=== PATIENT | female | born 1955 | race Caucasian/White ===

== ENCOUNTER 2017-03-09 12:55 | Inpatient (IN) ==
[2017-03-09] MEDS ORDERED: TYLENOL PO PRN (13:27)
[2017-03-09] MEDS ORDERED: SOLU-MEDROL IV ONE (13:32)
[2017-03-09] MEDS ORDERED: ZANAFLEX PO PRN (13:47)
--- NOTE | 2017-03-09 14:30 | Diag Imaging Result Doc PS360 ---
EXAM: CHEST-2 VIEWS HISTORY: shortness of breath TECHNIQUE: COMPARISON: 09/02/2015 FINDINGS: There are small patchy infiltrates in both lungs. The heart is not enlarged. The lungs are well expanded. No pleural effusions. Mild scoliosis. There are multiple surgical clips near the GE junction. IMPRESSION: Small bilateral infiltrates. Electronically signed by Austen Aguilera 03/09/2017 2:28 PM
[2017-03-09 14:35] LABS: BASO% 0.1 % (0.0-0.8); HEMATOCRIT 39.9 % (37.0-47.0); IMM GRAN# 0.05 X1000 (0.0-0.04); IMM GRAN% 0.3 % (0.0-0.5); LYMPH# 1.06 X1000 (1.2-3.4); LYMPH% 6.7 % (20.5-51.1); MANUAL DIFF NEEDED? YES; MCH 29.9 PG (27-31); MCHC 32.6 g/dL (33-37); MCV 91.7 FL (81-99); MONO# 0.18 X1000 (0.11-0.59); MONO% 1.1 % (1.7-9.3); MPV 10.6 FL (7.4-10.4); NEUT% 91.8 % (42.2-75.2); PLT 327 X1000 (130-400); RBC 4.35 XMIL (4.2-5.4)
[2017-03-09] MEDS: ROCEPHIN 1 GM/NS 1 GM/50 ML IVPB IV SCH (14:38)
[2017-03-09] MEDS: LOVENOX SUBQ SCH (14:39)
[2017-03-09 14:49] LABS: AGAP 4; ALBUMIN 3.5 g/dL (3.5-5.0); ALKALINE PHOSPHATASE 139 U/L (32-104); BUN 20 mg/dL (8-22); CALCIUM 9.2 mg/dL (8.8-10.2); CHLORIDE 105 mmol/L (98-107); COSMO 271; GOT 37 U/L (10-30); GPT 41 U/L (10-36); POTASSIUM 4.2 mmol/L (3.5-5.1); SODIUM 130 mmol/L (136-145); TCO2 21 mmol/L (25-35); TOTAL BILIRUBIN 0.29 mg/dL (0.20-1.00); TOTAL PROTEIN 7.2 g/dL (6.3-8.3)
[2017-03-09] MEDS: ZITHROMAX 500 MG/NS 500 MG/250 ML IVPB IV SCH (15:14)
[2017-03-09] MEDS: DUONEB (A & A) INH SCH ×3 (15:28→23:11)
[2017-03-09 15:48] LABS: LYMPHS 8 % (21-51); MONO 2 % (1-9)
[2017-03-09] MEDS: GLUCOPHAGE PO SCH (16:24)
[2017-03-09] MEDS: NEURONTIN PO SCH ×2 (16:24→22:18)
[2017-03-09] MEDS: HUMALOG SUBQ SCH ×3 (16:25→22:26)
--- NOTE | 2017-03-09 18:01 | HISTORY AND PHYSICAL ---
PRIMARY CARE PHYSICIAN: Dr. Crescencio Garcia CHIEF COMPLAINT: Cough, congestion, for shortness of breath. HISTORY OF PRESENT ILLNESS: A 61-year-old white female with past medical history significant for anxiety, cervical spine pain, iron deficiency, diabetes, reflux disease, hypertension, hyperlipidemia, GERD, long-standing tobacco use, and osteoarthritis who presents for evaluation of the above-mentioned symptoms. Current history of present illness began last Thursday. At that time, she developed nasal drainage. The patient attributed this to either allergic or viral etiologies. She treated this supportively. On night, patient developed symptoms more consistent with pulmonary etiology. She complained of wheezing, cough, and shortness of breath. The patient was able to carry on her daily activities, but unfortunately has developed significant progression. On Thursday, she was seen in a walk-in clinic. She was encouraged to go to the hospital secondary to underlying hypoxia. She was, however, able to encourage and convince the staff to treat her supportively prior to pursuing inpatient care. The patient was treated with a Rocephin and steroid injection followed by a Z-Brett, ProAir HFA, and prednisone. The patient states she has achieved a modest improvement, but continues to have considerable symptoms. The patient presents today with persistent cough, congestion, shortness of breath, wheezing, and chills. She denies fevers. Her cough is largely nonproductive. She denies significant sick contacts to her knowledge. Upon arrival in the office today, her O2 saturation was 85% after ambulating. With resting, she improves to 90%. Because of an outpatient failure of therapy and persistent/progressive symptoms, patient will be admitted to the hospital for full evaluation and management. PAST MEDICAL HISTORY: 1. Abnormal EKG with poor R-wave progression. 2. History of acute pancreatitis in 1984. 3. History of left adhesive capsulitis. 4. Anxiety/depression. 5. Abnormal skin examination with multiple brown nevi. 6. Cervical spine pain status post surgical intervention in 2014. 7. Cholelithiasis, status post open cholecystectomy in 1978. 8. Chronic pain. 9. Iron deficiency. 10. Diabetes. 11. Reflux disease. 12. Hypertension. 13. Hyperlipidemia. 14. Long-standing history of neuropathy. 15. Long-standing history of tobacco. 16. Obesity. 17. Osteoarthritis. 18. History of vaginal wall prolapse status post total vaginal hysterectomy in 1997. 19. Vitamin B12 deficiency. CURRENT MEDICATIONS: 1. Aspirin 81 mg at bedtime. 2. Amlodipine 5 mg daily. 3. Ativan 1 mg at bedtime. 4. B-complex vitamin daily. 5. Iron sulfate 325 mg daily. 6. Gabapentin 800 mg 4 times daily. 7. Glyburide 5 mg 2 tablets twice daily. 8. Ibuprofen 600 mg twice daily as needed. 9. Lipitor 20 mg at bedtime. 10. Losartan 100 mg daily. 11. Metformin 1000 mg twice daily. 12. [place] as needed. 13. Omeprazole 40 mg twice daily. 14. Prilosec. 15. ProAir HFA as needed. 16. Tizanidine 4 mg 3 times daily as needed. 17. Tylenol 650 mg 2 tablets twice daily. 18. Vitamin B12 2500 mcg sublingual daily. 19. Vitamin C 500 mg twice daily. 20. Vitamin D3 1000 mg daily. 21. Zoloft 100 mg 1-1/2 tablets daily. ALLERGIES: Patient states she is allergic to tramadol. SOCIAL HISTORY: Patient smoked 1 pack per day for 24 years. She stopped in 2004. She resumed using a vapor cigarette in 2013, but quit in late 2015. Patient denies alcohol or illicit drug use. She works as a school cook and a nurse. She enjoys hiking, biking, and horseback riding. FAMILY HISTORY: Patient's father passed at age 67 secondary to complications of diabetes. He had a history of rheumatoid arthritis. Patient's mother is age 80 and has a history of diabetes and hypertension. REVIEW OF SYSTEMS: A 12 point review of systems was performed. Pertinent positives and negatives are noted in history present illness. PHYSICAL EXAMINATION: VITAL SIGNS: Temperature 98.8 degrees, heart rate 102, respirations 20, blood pressure 135/76. Initial saturation 85%. Saturation 90% with rest. GENERAL: Well nourished, well developed, no acute distress. HEENT: Normocephalic, atraumatic. Pupils equal, round, reactive to light. Extraocular muscles intact. Sclerae anicteric. [place] conjunctivae. Oral and nasopharynx clear without exudate. NECK: Supple. No lymphadenopathy. No thyromegaly. No bruits auscultated. CARDIOVASCULAR: Regular rate and rhythm. No significant murmurs, rubs, or gallops. PULMONARY: Pulmonary diffuse wheezing bilaterally. Crackles at bilateral bases. Compromised air movement. ABDOMEN: Soft, nontender, nondistended. Positive bowel sounds. EXTREMITIES: Moves all extremities well. No significant clubbing, cyanosis, or edema. NEUROLOGIC: Cranial nerves 2 through 12 grossly intact. Motor and sensory grossly intact. PSYCHOLOGIC: Examination is appropriate. LABORATORY DATA: White blood cell count 15.85. Hemoglobin 13.0, hematocrit 39.9, platelet count 327,000. Sodium 130, potassium 4.2, chloride 105, bicarbonate 21, BUN 20, creatinine 0.8, glucose 232, calcium 9.2, total bilirubin 0.29, total protein 7.2, albumin 3.5, alkaline phosphatase 139, AST 37, ALT 41. Chest x-ray reveals small bilateral infiltrates. ASSESSMENT AND PLAN: A 61-year-old white female with a complicated past medical history as noted presents for evaluation of cough, congestion, shortness of breath, and wheezing. Patient attempted treatment as an outpatient with antibiotics, steroids, and bronchodilators, although this proved ineffective. Upon arrival to my office, patient was hypoxic. Patient will be admitted to the hospital for full evaluation and management of each of those conditions above. 1. Admit to General Medicine. 2. Community acquired pneumonia-on x-ray, patient does have bilateral infiltrates. On examination, patient has diffuse crackles bilaterally with compromised air movement. Patient will be started on broad-spectrum antibiotics in the form of Rocephin and azithromycin therapy. We will check a sputum culture and blood culture. We will treat patient's bronchospasm as below. We will encourage incentive spirometry. We will follow patient's clinical course closely. 3. Diffuse bronchospasm-I am concerned this likely represents an underlying exacerbation of chronic obstructive pulmonary disease. Thus far, she has not been interested in pulmonary function testing as an outpatient at her pulmonary baseline. For now, we will treat as such. We will start patient on bronchodilators every 4 hours. We will initiate IV steroid intervention as she failed oral steroids. We will follow this closely as well. 4. Hypoxia-this likely is secondary to a combination of pneumonia and bronchospasm. We will treat patient with oxygen per protocol. We will aggressively manage pneumonia and bronchospasm as noted. We will follow her clinical course closely. 5. Diabetes-we will continue home medications. We will add sliding scale insulin. This too will be followed closely. 6. Reflux disease-we will continue patient on home dose Prilosec. 7. Hypertension-we will continue home medications. We will follow this while hospitalized. 8. Hyperlipidemia-we will continue patient on atorvastatin therapy. 9. Fluid electrolytes nutrition. 10. Neuropathy-patient has longstanding disease. We will continue gabapentin therapy. 11. Fluid electrolytes nutrition. We will monitor electrolytes. Saline lock IV, diabetic diet. Prophylaxis, patient will be placed on subcu Lovenox. cc: Crescencio Garcia MD
[2017-03-09] MEDS: ASPIRIN PO SCH (22:17)
[2017-03-09] MEDS: LIPITOR PO SCH (22:17)
[2017-03-09] MEDS: SOLU-MEDROL IV SCH (22:17)
[2017-03-09] MEDS: COZAAR PO SCH (22:17)
[2017-03-09] MEDS: TYLENOL ARTHRITIS PO SCH (22:18)
[2017-03-09] MEDS: PRILOSEC PO SCH (22:18)
[2017-03-09] MEDS: DIABETA PO SCH (22:18)
[2017-03-09] MEDS: ATIVAN PO SCH (22:18)
[2017-03-10] MEDS: DUONEB (A & A) INH SCH ×6 (03:13→22:55)
[2017-03-10] MEDS: SOLU-MEDROL IV SCH ×2 (06:31→13:35)
[2017-03-10] MEDS: HUMALOG SUBQ SCH ×4 (06:31→20:06)
[2017-03-10] MEDS: PRILOSEC PO SCH ×2 (08:01→20:01)
[2017-03-10] MEDS: ZANAFLEX PO SCH ×4 (08:01→20:01)
[2017-03-10] MEDS: GLUCOPHAGE PO SCH ×2 (08:01→16:22)
[2017-03-10] MEDS: FERROUS SULFATE PO SCH (08:01)
[2017-03-10] MEDS: TYLENOL ARTHRITIS PO SCH ×2 (08:01→20:01)
[2017-03-10] MEDS: VITAMIN C PO SCH (08:01)
[2017-03-10] MEDS: NEURONTIN PO SCH ×4 (08:01→20:00)
[2017-03-10] MEDS: NORVASC PO SCH (08:01)
[2017-03-10] MEDS: VITAMIN D PO SCH (08:01)
[2017-03-10] MEDS: ZOLOFT PO SCH (08:01)
[2017-03-10] MEDS: VITAMIN B-12 PO SCH (08:02)
[2017-03-10] MEDS: DIABETA PO SCH ×2 (08:02→20:01)
[2017-03-10] MEDS ORDERED: VITAMIN B-12 SL SCH (09:00)
[2017-03-10] MEDS: LOVENOX SUBQ SCH (13:33)
[2017-03-10] MEDS: ROCEPHIN 1 GM/NS 1 GM/50 ML IVPB IV SCH (13:33)
[2017-03-10] MEDS: ZITHROMAX 500 MG/NS 500 MG/250 ML IVPB IV SCH (14:20)
--- NOTE | 2017-03-10 19:11 | PROGRESS NOTE ---
DATE: 03/10/2017 SUBJECTIVE: Patient was admitted yesterday with community-acquired pneumonia and associated bronchospasm. Patient was placed on broad-spectrum antibiotics in the form of Rocephin and azithromycin. Her diffuse bronchospasm was treated with IV steroids and bronchodilators. Since admission, patient has made very slow improvement. She notes a mild decrease in shortness of breath, cough, and wheezing since yesterday. She denies fevers, chills, nausea, and vomiting. She continues to require oxygen supplementation to maintain adequate saturations. Her blood sugars have been elevated associated with steroid use. OBJECTIVE: Vital signs: Temperature maximum 98.3, heart rate 78 to 100, respirations 17 to 24, blood pressure 103 to 147/64 to 89. General: Well nourished, well developed, in no acute distress. Cardiovascular: Regular rate and rhythm. No significant murmurs, rubs, or gallops. Pulmonary: Diffuse bronchospasm, improving with improved air movement. Abdomen: Soft, nontender, nondistended. Positive bowel sounds. Extremities: Moves all extremities well. No significant clubbing, cyanosis, or edema. Dermatologic: Evaluation reveals no evidence of rash. LABORATORY DATA: None. ASSESSMENT AND PLAN: 1. Community-acquired pneumonia-patient's sputum culture is pending. We will continue Rocephin and azithromycin therapy. We will encourage incentive spirometry. We will treat patient's bronchospasm as below. 2. Diffuse bronchospasm-patient has achieved a slight improvement with aggressive interventions and we will continue her current dose of IV steroids. We will continue DuoNeb. We will follow her clinical course closely. 3. Hypoxia-we will continue oxygen per protocol. Oxygen saturations at present time are acceptable. 4. Diabetes-patient's blood sugars remained elevated. We will increase sliding scale insulin to the moderate level. We will follow this. 5. Reflux disease-we will continue Prilosec therapy. Symptoms are controlled. 6. Hypertension-patient's blood pressure is labile. We will continue her home medications. 7. Hyperlipidemia-we will continue patient on atorvastatin therapy. 8. Neuropathy-we will continue gabapentin. Symptoms are stable. 9. Disposition-at this point, patient continues to require longterm care in a hospital setting. We will plan discharge home once appropriate. cc: Crescencio Garcia MD
[2017-03-10] MEDS: ATIVAN PO SCH (20:00)
[2017-03-10] MEDS: COZAAR PO SCH (20:01)
[2017-03-10] MEDS: LIPITOR PO SCH (20:01)
[2017-03-10] MEDS: ASPIRIN PO SCH (20:01)
[2017-03-11] MEDS: SOLU-MEDROL IV SCH ×4 (00:43→22:38)
[2017-03-11] MEDS: DUONEB (A & A) INH SCH ×6 (03:05→23:01)
[2017-03-11] MEDS: HUMALOG SUBQ SCH ×4 (06:14→22:39)
[2017-03-11] MEDS: TYLENOL ARTHRITIS PO SCH ×3 (07:57→20:27)
[2017-03-11] MEDS: VITAMIN B-12 PO SCH ×2 (07:57→08:02)
[2017-03-11] MEDS: NORVASC PO SCH ×2 (07:58→08:02)
[2017-03-11] MEDS: ZOLOFT PO SCH ×2 (07:58→08:02)
[2017-03-11] MEDS: NEURONTIN PO SCH ×5 (07:58→20:26)
[2017-03-11] MEDS: ZANAFLEX PO SCH ×5 (07:58→20:27)
[2017-03-11] MEDS: DIABETA PO SCH ×3 (07:58→20:26)
[2017-03-11] MEDS: GLUCOPHAGE PO SCH ×2 (07:58→16:49)
[2017-03-11] MEDS: VITAMIN D PO SCH ×2 (07:58→08:02)
[2017-03-11] MEDS: FERROUS SULFATE PO SCH ×2 (07:58→08:01)
[2017-03-11] MEDS: PRILOSEC PO SCH ×3 (07:58→20:27)
[2017-03-11] MEDS: VITAMIN C PO SCH ×2 (07:58→08:02)
[2017-03-11] MEDS: ROCEPHIN 1 GM/NS 1 GM/50 ML IVPB IV SCH (13:49)
[2017-03-11] MEDS: LOVENOX SUBQ SCH (13:49)
[2017-03-11] MEDS: ZITHROMAX 500 MG/NS 500 MG/250 ML IVPB IV SCH (14:25)
[2017-03-11] MEDS: DIFLUCAN PO SCH (14:29)
--- NOTE | 2017-03-11 14:46 | PROGRESS NOTE ---
DATE: 03/11/2017 SUBJECTIVE: Overall, patient's condition continues to very slowly improve. She is currently being treated with IV antibiotics, IV steroids and bronchodilators. This morning, she notes a mild decrease in her wheezing and shortness of breath. She continues to require oxygen supplementation to maintain adequate oxygen saturations. She denies fevers, chills, nausea, vomiting or chest discomfort. OBJECTIVE: Vital Signs: T-max 98.7, heart rate 83-103, respirations 16-23, blood pressure 103 to 153 over 68 to 89. General: Well nourished, well developed, in no acute distress. Cardiovascular: Regular rate and rhythm. No significant murmurs, rubs, or gallops. Pulmonary: Wheezing bilaterally, improving. Adequate air movement. Abdomen: Soft, nontender, nondistended. Positive bowel sounds. Extremities: Moves all extremities well. No significant clubbing, cyanosis, or edema. Dermatologic: Evaluation reveals no evidence of rash. LABORATORY DATA: None. ASSESSMENT AND PLAN: 1. Community-acquired pneumonia--patient's sputum culture thus far has revealed 1+ normal abbey and 1+ yeast. We will continue patient on azithromycin and Rocephin therapy. We will add Diflucan. We will encourage incentive spirometry. We will treat bronchospasm as below. 2. Diffuse bronchospasm--I suspect this is secondary to underlying chronic obstructive pulmonary disease. The underlying diagnosis of chronic obstructive pulmonary disease has not been confirmed as patient has not been interested in pulmonary function testing. For now, we will continue intravenous steroids and DuoNeb. We will recheck patient this afternoon to determine if decreasing intravenous steroids is appropriate. 3. Hypoxia--we will continue patient on oxygen per protocol. We will encourage incentive spirometry. 4. Diabetes--patient's blood sugars remain elevated with steroid use. I suspect with decreasing steroids we will see improvement. For now, we will continue sliding scale insulin. 5. Reflux disease--we will continue patient on Prilosec therapy. Symptoms are controlled. 6. Hypertension--patient's blood pressure continues to have considerable lability. We will continue her home medications. 7. Hyperlipidemia--we will continue atorvastatin therapy. 8. Neuropathy--we will continue patient on gabapentin. 9. Disposition--at this point, patient continues to require detention care in a hospital setting. We will plan discharge home once appropriate. cc: Crescencio Garcia MD
[2017-03-11] MEDS: MYCOSTATIN SUSP PO SCH ×2 (16:49→20:27)
[2017-03-11] MEDS: ASPIRIN PO SCH (20:26)
[2017-03-11] MEDS: MUCINEX DM PO SCH (20:26)
[2017-03-11] MEDS: LIPITOR PO SCH (20:27)
[2017-03-11] MEDS: COZAAR PO SCH (20:27)
[2017-03-11] MEDS: ATIVAN PO SCH (22:38)
[2017-03-12] MEDS: DUONEB (A & A) INH SCH ×6 (03:45→23:05)
[2017-03-12] MEDS: HUMALOG SUBQ SCH ×4 (06:31→21:50)
[2017-03-12] MEDS: SOLU-MEDROL IV SCH ×3 (06:31→21:50)
--- NOTE | 2017-03-12 07:48 | Diag Imaging Result Doc PS360 ---
EXAM: CHEST-2 VIEWS HISTORY: hypoxia TECHNIQUE: Two views COMPARISON: 03/09/2017 FINDINGS: The lungs are well expanded. The heart is not enlarged. The vessels are not distended. There are mild increased interstitial markings similar to the prior exam. No pleural effusions. Mild scoliosis. IMPRESSION: No definite change with mild increased interstitial markings in both lungs. Electronically signed by Austen Aguilera 03/12/2017 7:46 AM
[2017-03-12] MEDS: DIABETA PO SCH ×2 (08:40→21:46)
[2017-03-12] MEDS: VITAMIN B-12 PO SCH (08:40)
[2017-03-12] MEDS: FERROUS SULFATE PO SCH (08:40)
[2017-03-12] MEDS: NEURONTIN PO SCH ×4 (08:40→21:46)
[2017-03-12] MEDS: VITAMIN D PO SCH (08:40)
[2017-03-12] MEDS: MYCOSTATIN SUSP PO SCH ×4 (08:40→21:52)
[2017-03-12] MEDS: ZOLOFT PO SCH (08:41)
[2017-03-12] MEDS: VITAMIN C PO SCH (08:41)
[2017-03-12] MEDS: PRILOSEC PO SCH ×2 (08:41→21:46)
[2017-03-12] MEDS: GLUCOPHAGE PO SCH ×2 (08:41→16:56)
[2017-03-12] MEDS: ZANAFLEX PO SCH ×3 (08:41→16:56)
[2017-03-12] MEDS: NORVASC PO SCH (08:41)
[2017-03-12] MEDS: DIFLUCAN PO SCH (08:41)
[2017-03-12] MEDS: MUCINEX DM PO SCH ×2 (08:42→21:46)
[2017-03-12] MEDS: TYLENOL ARTHRITIS PO SCH ×2 (08:52→21:46)
[2017-03-12] MEDS: LOVENOX SUBQ SCH (13:16)
[2017-03-12] MEDS: ROCEPHIN 1 GM/NS 1 GM/50 ML IVPB IV SCH (13:17)
[2017-03-12] MEDS: ZITHROMAX 500 MG/NS 500 MG/250 ML IVPB IV SCH (14:11)
[2017-03-12] MEDS: ATIVAN PO SCH (21:46)
[2017-03-12] MEDS: COZAAR PO SCH (21:46)
[2017-03-12] MEDS: ASPIRIN PO SCH (21:46)
[2017-03-12] MEDS: LIPITOR PO SCH (21:46)
[2017-03-13] MEDS: DUONEB (A & A) INH SCH ×6 (03:40→22:53)
--- NOTE | 2017-03-13 05:16 | PROGRESS NOTE ---
DATE: 03/12/2017 SUBJECTIVE: Overall, the patient continues to very slowly improve. The patient states she rested reasonably well overnight. She continues to require oxygen supplementation to maintain adequate saturations. She continues to have cough and wheezing, although this is improving. She denies fevers, chills, nausea, vomiting, shortness of breath, or chest discomfort. Her blood sugars remained elevated associated with steroid use. OBJECTIVE: Vital Signs: T-max 98.3 degrees, heart rate 92-106, respirations 16-20, blood pressure 117-137 over 72/73. General: Well nourished, well developed in no acute distress. Cardiovascular: Regular rate and rhythm. No significant murmurs, rubs, or gallops. Pulmonary: Scattered wheezes improving air movement. Abdomen: Soft, nontender, and nondistended. Positive bowel sounds. Extremities: Moves all extremities well. No significant clubbing, cyanosis, or edema. Dermatologic: Evaluation reveals no evidence of rash. LABORATORY DATA: None. ASSESSMENT AND PLAN: 1. Community-acquired pneumonia-patient's chest x-ray demonstrates no significant change. We will continue patient on broad-spectrum antibiotics. As noted yesterday, yeast grew from her sputum culture. Diflucan was added. We will continue treatment of her underlying bronchospasm as described below. 2. Diffuse bronchospasm-patient is achieving improved air movement. We will decrease Solu-Medrol to 40 mg q.8 hours. We will continue albuterol and Atrovent nebulizer treatment. We will encourage incentive spirometry. We will follow this. 3. Hypoxia - We will continue patient on oxygen per protocol. 4. Diabetes as above, patient's blood sugars are elevated. We will continue sliding scale insulin. 5. Reflux disease-we will continue the patient on Prilosec therapy. 6. Hypertension-patient's blood pressure continues to have physical debility. We will continue her home medications. 7. Hyperlipidemia - We will continue patient on atorvastatin therapy. 8. Neuropathy-We will continue gabapentin. 9. Disposition-at this point, the patient continues to require correction care in the hospital setting. We will plan discharge home once appropriate. cc: Crescencio Garcia MD
[2017-03-13] MEDS: SOLU-MEDROL IV SCH ×2 (06:54→17:48)
[2017-03-13] MEDS: HUMALOG SUBQ SCH ×4 (06:54→20:57)
[2017-03-13] MEDS: GLUCOPHAGE PO SCH ×2 (08:09→17:46)
[2017-03-13] MEDS: MUCINEX DM PO SCH ×2 (08:09→20:57)
[2017-03-13] MEDS: ZOLOFT PO SCH (08:10)
[2017-03-13] MEDS: ZANAFLEX PO SCH ×3 (08:10→17:47)
[2017-03-13] MEDS: FERROUS SULFATE PO SCH (08:10)
[2017-03-13] MEDS: VITAMIN B-12 PO SCH (08:10)
[2017-03-13] MEDS: VITAMIN C PO SCH (08:10)
[2017-03-13] MEDS: NORVASC PO SCH (08:11)
[2017-03-13] MEDS: DIFLUCAN PO SCH (08:11)
[2017-03-13] MEDS: NEURONTIN PO SCH ×4 (08:11→20:56)
[2017-03-13] MEDS: PRILOSEC PO SCH ×2 (08:11→20:56)
[2017-03-13] MEDS: VITAMIN D PO SCH (08:12)
[2017-03-13] MEDS: DIABETA PO SCH ×2 (08:12→20:57)
[2017-03-13] MEDS: TYLENOL ARTHRITIS PO SCH ×2 (09:44→20:55)
[2017-03-13] MEDS: MYCOSTATIN SUSP PO SCH ×4 (09:46→21:05)
[2017-03-13] MEDS: ROCEPHIN 1 GM/NS 1 GM/50 ML IVPB IV SCH (14:21)
[2017-03-13] MEDS: LOVENOX SUBQ SCH (14:43)
[2017-03-13] MEDS: ZITHROMAX 500 MG/NS 500 MG/250 ML IVPB IV SCH (16:46)
--- NOTE | 2017-03-13 18:34 | PROGRESS NOTE ---
DATE: 03/13/2017 SUBJECTIVE: Overall, patient continues to very slowly improve. Yesterday, we decreased Solu- Medrol to 40 mg q.8 hours. She continues to have some wheezing, although this continues to slowly improve. She continues to tolerate IV antibiotics and bronchodilators. She denies fevers, chills, nausea, and vomiting. Blood sugars remain elevated, however, improving, with steroid use. OBJECTIVE: Vital Signs: T-max 98.1, heart rate 87-101, respirations 16-18, blood pressure 117 to 147 over 72 to 76. General: Well nourished, well developed, in no acute distress. Cardiovascular: Regular rate and rhythm. No significant murmurs, rubs, or gallops. Pulmonary: Occasional wheeze, improving air movement. Abdomen: Soft, nontender, nondistended. Positive bowel sounds. Extremities: Moves all extremities well. No significant clubbing, cyanosis, or edema. Dermatologic: Evaluation reveals no evidence of rash. LABORATORY DATA: None. ASSESSMENT AND PLAN: 1. Community acquired pneumonia-the patient continues to improve clinically. We will continue broad-spectrum antibiotics. We will follow her clinical course closely. 2. Diffuse bronchospasm-patient has achieved improvement while hospitalized. We will decrease Solu-Medrol to 40 mg q.12 hours. We will continue albuterol and Atrovent. We will encourage incentive spirometry. 3. Hypoxia-patient continues to require oxygen per protocol. We will remain aware. 4. Diabetes-patient's blood sugars are elevated, but improving with decreasing steroid use. We will continue sliding scale insulin. 5. Reflux disease-we will continue patient on Prilosec therapy. 6. Hypertension-patient's blood pressure is reasonably controlled on her current regimen. 7. Hyperlipidemia - We will continue patient on atorvastatin therapy. 8. Neuropathy-the patient's symptoms are reasonably controlled with gabapentin. Disposition-At this point, the patient continues to require alf care in a hospital setting. We will plan discharge home once appropriate. cc: Crescencio Garcia MD
[2017-03-13] MEDS: ASPIRIN PO SCH (20:55)
[2017-03-13] MEDS: COZAAR PO SCH (20:55)
[2017-03-13] MEDS: ATIVAN PO SCH (20:56)
[2017-03-13] MEDS: LIPITOR PO SCH (20:56)
[2017-03-14] MEDS: DUONEB (A & A) INH SCH ×5 (03:20→19:41)
[2017-03-14] MEDS: SOLU-MEDROL IV SCH ×2 (06:23→17:16)
[2017-03-14] MEDS: HUMALOG SUBQ SCH ×4 (06:24→21:04)
[2017-03-14] MEDS: MUCINEX DM PO SCH ×2 (11:35→20:52)
[2017-03-14] MEDS: NORVASC PO SCH (11:35)
[2017-03-14] MEDS: ZOLOFT PO SCH (11:35)
[2017-03-14] MEDS: PRILOSEC PO SCH ×2 (11:35→20:52)
[2017-03-14] MEDS: TYLENOL ARTHRITIS PO SCH ×2 (11:35→20:53)
[2017-03-14] MEDS: NEURONTIN PO SCH ×4 (11:36→20:53)
[2017-03-14] MEDS: DIFLUCAN PO SCH (11:36)
[2017-03-14] MEDS: DIABETA PO SCH ×2 (11:36→20:53)
[2017-03-14] MEDS: ZANAFLEX PO SCH ×3 (11:36→19:28)
[2017-03-14] MEDS: GLUCOPHAGE PO SCH ×2 (11:36→17:15)
[2017-03-14] MEDS: VITAMIN B-12 PO SCH (11:36)
[2017-03-14] MEDS: VITAMIN D PO SCH (11:36)
[2017-03-14] MEDS: FERROUS SULFATE PO SCH (11:37)
[2017-03-14] MEDS: VITAMIN C PO SCH (11:37)
[2017-03-14] MEDS: MYCOSTATIN SUSP PO SCH ×4 (11:38→20:52)
--- NOTE | 2017-03-14 14:03 | PROGRESS NOTE ---
DATE: 03/14/2017 SUBJECTIVE: The patient continues to very slowly improve. Yesterday, we decreased her Solu- Medrol to 40 mg q.12 hours. The patient has achieved some improvement but continues to have some wheezing. She is being treated with IV antibiotics, bronchodilators, and IV steroids. She continues to require oxygen supplementation to maintain adequate oxygen saturations. She denies fevers, chills, nausea, vomiting, or chest discomfort. OBJECTIVE: T-Max 98.8, heart rate 69-105, respirations 16-18, blood pressure 133 to 149 over 69 to 80. General: Well nourished, well developed, in no acute distress. Cardiovascular: Regular rate and rhythm. No significant murmurs, rubs, or gallops. Pulmonary: Diffuse wheezing, largely unchanged from yesterday. Adequate air movement. Abdomen is soft, nontender, nondistended. Positive bowel sounds. Extremities: Moves all extremities well. No significant clubbing, cyanosis, or edema. Dermatologic evaluation reveals no evidence of rash. LABORATORY DATA: None. ASSESSMENT AND PLAN: 1. Community acquired pneumonia - Patient continues to improve clinically, although slowly. For now, we will continue her broad-spectrum antibiotics and encourage incentive spirometry. We will continue to treat her bronchospasm as below. 2. Diffuse bronchospasm - I suspect this represents an underlying acute exacerbation of chronic obstructive pulmonary disease. I cannot define this as she has not had pulmonary function testing today. We will continue Solu-Medrol 40 mg q.12 hours and albuterol/Atrovent nebulizer treatments. Should she continue to improve, we will consider transitioning to oral steroids tomorrow. 3. Hypoxia - We will continue oxygen per protocol. We will work towards weaning prior to discharge. If unable, we will plan oxygen at home. 4. Diabetes - The patient's blood sugars are reasonably controlled with sliding scale insulin. 5. Reflux disease - We will continue Prilosec therapy. We will encourage aspiration precautions. 6. Hypertension - The patient's blood pressure is reasonably controlled on her current regimen. 7. Hyperlipidemia - We will continue atorvastatin therapy. 8. Neuropathy - We will continue gabapentin therapy. DISPOSITION: At this point, the patient continues to require custodial care in a hospital setting. We will plan discharge home once appropriate. cc: Crescencio Garcia MD
[2017-03-14] MEDS: LOVENOX SUBQ SCH (16:15)
[2017-03-14] MEDS: ROCEPHIN 1 GM/NS 1 GM/50 ML IVPB IV SCH (16:15)
[2017-03-14] MEDS: ZITHROMAX 500 MG/NS 500 MG/250 ML IVPB IV SCH (17:49)
[2017-03-14] MEDS: LIPITOR PO SCH (20:52)
[2017-03-14] MEDS: COZAAR PO SCH (20:53)
[2017-03-14] MEDS: ATIVAN PO SCH (20:53)
[2017-03-14] MEDS: ASPIRIN PO SCH (20:53)
[2017-03-15] MEDS: DUONEB (A & A) INH SCH ×7 (00:45→22:45)
[2017-03-15] MEDS: HUMALOG SUBQ SCH ×3 (06:29→16:28)
[2017-03-15] MEDS: SOLU-MEDROL IV SCH (06:29)
[2017-03-15] MEDS: PRILOSEC PO SCH (08:45)
[2017-03-15] MEDS: TYLENOL ARTHRITIS PO SCH (08:46)
[2017-03-15] MEDS: ZOLOFT PO SCH (08:46)
[2017-03-15] MEDS: VITAMIN D PO SCH (08:46)
[2017-03-15] MEDS: NEURONTIN PO SCH ×3 (08:46→16:26)
[2017-03-15] MEDS: GLUCOPHAGE PO SCH ×2 (08:46→16:26)
[2017-03-15] MEDS: VITAMIN B-12 PO SCH (08:46)
[2017-03-15] MEDS: DIABETA PO SCH (08:46)
[2017-03-15] MEDS: MYCOSTATIN SUSP PO SCH ×3 (08:47→16:29)
[2017-03-15] MEDS: ZANAFLEX PO SCH ×3 (08:47→16:26)
[2017-03-15] MEDS: VITAMIN C PO SCH (08:47)
[2017-03-15] MEDS: NORVASC PO SCH (08:47)
[2017-03-15] MEDS: DIFLUCAN PO SCH (08:47)
[2017-03-15] MEDS: MUCINEX DM PO SCH (08:47)
[2017-03-15] MEDS: FERROUS SULFATE PO SCH (08:47)
[2017-03-15] MEDS: PREDNISONE PO SCH (11:47)
[2017-03-15] MEDS: LOVENOX SUBQ SCH (13:28)
[2017-03-15] MEDS: ROCEPHIN 1 GM/NS 1 GM/50 ML IVPB IV SCH (13:28)
[2017-03-15] MEDS: ZITHROMAX 500 MG/NS 500 MG/250 ML IVPB IV SCH (14:06)
--- NOTE | 2017-03-15 14:37 | PROGRESS NOTE ---
DATE: 03/15/2017 SUBJECTIVE: Overall, the patient continues to very slowly improve. Two days ago, we decreased her Solu-Medrol. Yesterday, she showed, basically, stability, without significant improvement. Over the course of the last 24 hours, the patient has experienced increasing energy, as well as decreasing shortness of breath and wheezing. She denies fevers, chills, nausea, vomiting, or chest discomfort. Thus far, she has tolerated IV antibiotics, bronchodilators and IV steroids. She is attempting to increase her activity with walking in the halls. OBJECTIVE: Vital signs: T-max 98.8 degrees, heart rate 63 to 99, respirations 16 to 23, blood pressure 133 to 149/69 to 91. General: Well-nourished, well-developed, in no acute distress. Cardiovascular: Regular rate and rhythm. No significant murmurs, rubs, or gallops. Pulmonary: Was occasional wheeze, improved from yesterday. Adequate air movement. Abdomen: Soft, nontender, nondistended. Positive bowel sounds. Extremities: Moves all extremities well. No significant clubbing, cyanosis, or edema. Dermatologic: Evaluation reveals no evidence of rash. LABORATORY DATA: None. ASSESSMENT AND PLAN: 1. Community-acquired pneumonia - the patient continues to improve clinically. We will continue broad-spectrum antibiotics and encourage incentive spirometry. We will address the patient's bronchospasm, as described below. 2. Diffuse bronchospasm - once again, the patient is improving. This likely is secondary to underlying chronic obstructive pulmonary disease; however, this has not been definitively diagnosed. We will attempt to transition the patient from Solu-Medrol to prednisone therapy today. If she tolerates this, we will plan discharge home in the morning. 3. Hypoxia - the patient continues to require oxygen, per protocol. We will continue to work towards discontinuing this. If unable, she will be discharged with oxygen therapy. 4. Diabetes - the patient's blood sugars are reasonably controlled with sliding-scale insulin. 5. Reflux disease - we will continue the patient on Prilosec therapy and aspiration precautions. 6. Hypertension - the patient's blood pressure is reasonably controlled on her current regimen. 7. Hyperlipidemia - we will continue atorvastatin therapy. 8. Neuropathy - we will continue gabapentin, as her symptoms are controlled. 9. Disposition - at this point, the patient continues to require longterm care in a hospital setting. We will plan discharge home once appropriate. cc: Crescencio aGrcia MD
[2017-03-16] MEDS: ASPIRIN PO SCH
[2017-03-16] MEDS: COZAAR PO SCH
[2017-03-16] MEDS: MUCINEX DM PO SCH ×2 (00:01→08:55)
[2017-03-16] MEDS: LIPITOR PO SCH (00:01)
[2017-03-16] MEDS: PRILOSEC PO SCH ×2 (00:01→08:56)
[2017-03-16] MEDS: DIABETA PO SCH ×2 (00:01→08:53)
[2017-03-16] MEDS: TYLENOL ARTHRITIS PO SCH ×2 (00:01→08:56)
[2017-03-16] MEDS: NEURONTIN PO SCH ×4 (00:02→16:54)
[2017-03-16] MEDS: ATIVAN PO SCH (00:02)
[2017-03-16] MEDS: HUMALOG SUBQ SCH ×4 (00:06→16:55)
[2017-03-16] MEDS: DUONEB (A & A) INH SCH ×5 (03:20→19:31)
[2017-03-16] MEDS: GLUCOPHAGE PO SCH ×2 (08:53→16:54)
[2017-03-16] MEDS: DIFLUCAN PO SCH (08:54)
[2017-03-16] MEDS: FERROUS SULFATE PO SCH (08:54)
[2017-03-16] MEDS: MYCOSTATIN SUSP PO SCH ×4 (08:55→16:54)
[2017-03-16] MEDS: NORVASC PO SCH (08:56)
[2017-03-16] MEDS: PREDNISONE PO SCH (08:56)
[2017-03-16] MEDS: VITAMIN C PO SCH (08:57)
[2017-03-16] MEDS: ZOLOFT PO SCH (08:57)
[2017-03-16] MEDS: VITAMIN D PO SCH (08:57)
[2017-03-16] MEDS: ZANAFLEX PO SCH ×3 (08:57→16:54)
[2017-03-16] MEDS: VITAMIN B-12 PO SCH (08:58)
[2017-03-16] MEDS: ROCEPHIN 1 GM/NS 1 GM/50 ML IVPB IV SCH (12:51)
[2017-03-16] MEDS: LOVENOX SUBQ SCH (12:52)
[2017-03-16 15:01] VITALS: BP 115/56
[2017-03-16] MEDS: ZITHROMAX 500 MG/NS 500 MG/250 ML IVPB IV SCH (16:50)
--- NOTE | 2017-03-16 22:29 | DISCHARGE SUMMARY ---
ADMISSION DATE: 03/09/2017 DISCHARGE DATE: 03/16/2017 ADMISSION DIAGNOSES: 1. Cough. 2. Congestion. 3. Shortness of breath. DISCHARGE DIAGNOSES: 1. Community-acquired pneumonia. 2. Diffuse bronchospasm, likely secondary to acute exacerbation of chronic obstructive pulmonary disease. 3. Hypoxia, improved. 4. Diabetes, present on arrival. 5. Reflux disease, present on arrival. 6. Hypertension, present on arrival. 7. Hyperlipidemia, present on arrival. 8. Neuropathy, present on arrival. CONSULTATIONS: None. PROCEDURES: 1. Chest x-ray was performed on 03/09/2017 which revealed small bilateral infiltrates. 2. Chest x-ray was performed on 03/12/2017 which revealed no definitive change with mild increased interstitial markings in both lungs. HISTORY AND PHYSICAL EXAMINATION: See admit note. PHYSICAL EXAMINATION PRIOR TO DISCHARGE: Vital signs: Temperature 97.9. Heart rate 78. Respirations 21. Blood pressure 115/56. O2 saturation on room air 93%. General: Well nourished, well developed, no acute distress. Cardiovascular: Regular rate and rhythm. No significant murmurs, rubs or gallops. Pulmonary: Occasional mild wheezing with adequate air movement. Abdomen: Soft, nontender, nondistended. Positive bowel sounds. Extremities: Moves all extremities well. No significant clubbing, cyanosis or edema. Dermatologic: Examination reveals no evidence of rash. LABORATORY DATA PRIOR TO DISCHARGE: None. HOSPITAL COURSE: The patient was admitted as per history and physical examination. Hospital course per condition is as follows. 1. Community-acquired pneumonia. Upon admission, the patient was noted to have a significant cough and congestion. Chest x-ray confirmed bilateral infiltrates. The patient was started on broad-spectrum antibiotics in the form of Rocephin and azithromycin therapy. She tolerated this well. The patient will complete an additional 7 days of Augmentin as an outpatient. We will follow this closely. 2. Diffuse bronchospasm, likely secondary to acute exacerbation of chronic obstructive pulmonary disease. Historically, the patient has been resistant to pursue pulmonary function testing. For this reason, a definitive diagnosis of COPD had not been made. Upon admission, the patient was noted to have diffuse bronchospasm consistent with a COPD exacerbation. The patient was started on IV steroids and bronchodilators. The patient experienced a very slow, but gradual improvement. The patient was treated with a tapering dose of IV steroids. At time of discharge, the patient had tapered to oral prednisone. She will be discharged with a tapering dose, starting at 60 mg and decreasing 5 mg daily until off. A prescription for nebulized albuterol and Atrovent was provided. We will follow this closely as an outpatient as well. 3. Hypoxia. While hospitalized, the patient was noted to have considerable hypoxia. The patient was treated with oxygen per protocol. Ultimately, she titrated off of therapy. This will be followed as an outpatient as well. 4. Diabetes. While hospitalized, the patient was noted to have significantly elevated blood sugars secondary to steroids. She was covered with sliding scale insulin. We will discharge the patient home on her current regimen with addition of sliding scale Lispro insulin. We will follow this closely as an outpatient as well. I suspect with decreasing steroids, her insulin requirements will decrease and ultimately resolve. 5. Reflux disease. The patient was continued on Prilosec while hospitalized with adequate response. 6. Hypertension. The patient's blood pressure remained reasonably controlled on her current regimen. 7. Hyperlipidemia. The patient was maintained on atorvastatin therapy. 8. Neuropathy. The patient was treated with gabapentin therapy while hospitalized. Symptoms remained controlled. DISCHARGE CONDITION: Good. DISPOSITION: Discharged to home. MEDICATIONS: 1. Augmentin 875/125 twice daily for 7 days. 2. Vitamin C 500 mg daily. 3. Iron sulfate 325 mg daily. 4. Glyburide 10 mg twice daily. 5. Lispro sliding scale insulin. 6. Ativan 1 mg at bedtime. 7. Prednisone taper starting at 60 mg and decreasing 5 mg until off. 8. Tylenol Arthritis 1300 mg twice daily. 9. Vitamin B12 1000 mcg daily. 10.Mucinex DM twice daily. 11.Nystatin swish and swallow 5 mL 4 times daily. 12.Albuterol/Atrovent nebulizer q.4 hours while awake. 13.Vitamin D3 2000 units daily. 14.Aspirin 81 mg daily. 15.Atorvastatin 20 mg at bedtime. 16.Sertraline 150 mg daily. 17.Omeprazole 40 mg daily. 18.Metformin 1000 mg twice daily. 19.Losartan 100 mg at bedtime. 20.Gabapentin 800 mg 4 times daily. 21.ProAir HFA as needed. 22.Zanaflex 4 mg 3 times daily. 23.Amlodipine 5 mg daily. FOLLOWUP: The patient is to follow up with me in approximately 1-2 weeks. cc: Crescencio Garcia MD
== END 2017-03-16 20:19 | disposition home or self-care (01) ==
LOC: DIRADM → OBSVTOIN 12:56 → 3N 13:18
PROVIDERS: ADMIT Internal Medicine; ATTEND Internal Medicine